=== PATIENT | male | born 1960 | race Caucasian/White ===

== ENCOUNTER 2022-03-11 14:09 | Outpatient (CLI) | payer OTHER ==
[2022-03-11] MEDS ORDERED: GADOBUTROL 10 MMOL/10 ML VIAL ONE (15:11)
[2022-03-11] MEDS ORDERED: GADOBUTROL 10 MMOL/10 ML VIAL IVP ONE (16:16)
--- NOTE | 2022-03-11 17:51 | MRI Report ---
PROCEDURE: Lumbar Spine W/WO INDICATIONS: MS, LUMBAR RADICULOPATHY CONTRAST: IV CONTRAST: Gadavist ml: 9.2 TECHNIQUE: Noncontrast sagittal T1 spin echo and T2 fast spin echo, sagittal STIR, axial T1 and T2 fast spin ech o through the lumbar spine. In cases with scoliosis, additional coronal T2 fast spin echo may be per formed. After the administration of contrast, sagittal and axial T1 spin echo with fat saturation th rough the lumbar spine. COMPARISON: None. FINDINGS: Image quality: Motion artifact is noted. Alignment and curvature: There is minimal retrolisthesis at L3-L4 and L4-L5. Marrow: Marrow is of normal overall signal. No acute vertebral body compression fractures. No susp icious marrow enhancement. Spinal cord: Conus medullaris terminates at the L1 level. Visualized spinal cord demonstrates guy l signal, without suspicious enhancement. Paraspinous soft tissues: No paravertebral masses or abnormal enhancement. T12-L1: Normal in appearance. L1-L2: Mild to moderate loss of disc height and disc signal can be seen. Mild to moderate disc bul ge is seen, which is eccentric to the right side. Moderate bilateral neural foraminal narrowing is s een. Moderate central canal narrowing is seen. L2-L3: Mild to moderate loss of disc height and disc signal can be seen at this level. At least mo derate disc bulge is seen, with a central/left disc extrusion. Mild facet hypertrophy is seen. Mod erate bilateral neural foraminal narrowing is seen. Severe central canal narrowing is seen at this l evel, as on series 7001 image 25 and on series 401 image 10. L3-L4: Moderate loss of disc height and signal are seen. Reactive marrow endplate changes are seen posteriorly, which are hyperintense on T1-weighted and T2-weighted imaging, without significant incr eased STIR signal. 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 Moderate disc bulge is seen. A superimposed central disc protrusion is seen. There is at chon st moderate bilateral neuroforaminal narrowing seen. A mild degree of compression can be seen upon th e exiting L3 nerve roots. Moderate central canal narrowing is seen. L4-L5: Mild loss of disc height and disc signal are seen. Moderate disc bulge is seen. A superimpos ed central disc protrusion is seen. Moderate facet hypertrophy is seen. Moderate to severe bilatera l neuroforaminal narrowing can be seen, right worse than left. Compression is seen upon the exiting n erve roots. Moderate to severe central canal narrowing is seen, as on series 701 image 13. L5-S1: The disc height is well-preserved. There is loss of disc signal seen. Mild disc bulge is se en. There is a mild central disc protrusion. Mild to moderate facet hypertrophy is seen. There is mo derate to severe bilateral neuroforaminal narrowing seen. Compression is seen upon the exiting nerve roots. Mild central canal narrowing is seen. IMPRESSION: Multiple levels of lumbar spine degenerative change are seen, including severe central canal narrowin g at L2-L3, with a central disc extrusion. There is moderate to severe central canal narrowing at L4-L5. Several sites of significant neuroforaminal narrowing can be seen, with associated exiting nerve root compression. Reviewed by: Christian Virk MD on 03/11/2022 4:50 PM ARTHUR Approved by: Christian Virk MD on 03/11/2022 4:50 PM ARTHUR Station ID: [id number]
== END 2022-03-11 14:10 | disposition home or self-care (01) ==
LOC: DI 14:09
PROVIDERS: ATTEND Student in an Organized Health Care Education/Training Program
DX: G35 Multiple sclerosis (principal); M47.26 Other spondylosis with radiculopathy, lumbar region; M51.16 Intervertebral disc disorders with radiculopathy, lumbar region; M48.061 Spinal stenosis, lumbar region without neurogenic claudication; M51.17 Intervertebral disc disorders with radiculopathy, lumbosacral region; M47.27 Other spondylosis with radiculopathy, lumbosacral region; M48.07 Spinal stenosis, lumbosacral region
CPT/HCPCS: 72158; A9585

== ENCOUNTER 2022-10-19 13:51 | Outpatient (CLI) | payer OTHER ==
--- NOTE | 2022-10-19 17:10 | MRI Report ---
PROCEDURE: LUMBAR SPINE WO INDICATIONS: LUMBAR HERNIATED DISC TECHNIQUE: Noncontrast sagittal T1 spin echo and T2 fast echo, sagittal STIR, axial T1 and T2 fast spin echo thr ough the lumbar spine. In cases with scoliosis, additional coronal T2 fast spin echo may be performe d. COMPARISON: MRI of the lumbar spine dated 03/11/2022 FINDINGS: Image quality: Excellent. Alignment and Curvature: There is normal bony alignment. Bone Marrow: Marrow is of normal overall signal. No acute vertebral body compression fractures. Spinal Cord: Conus medullaris terminates at the 1 level. Visualized cord demonstrates normal signal and size. Paraspinous Soft Tissues: No paravertebral masses. T12-L1: Mild disc desiccation and height loss. No canal stenosis. No foraminal stenosis. L1-L2: Moderate disc desiccation and height loss. No canal stenosis. Mild facet ligamentum flavum hypertrophy. No foraminal stenosis. L2-L3: Moderate disc desiccation and height loss. Broad based disc bulge. Mild canal stenosis. Mod erate facet ligamentum flavum hypertrophy. No foraminal stenosis. L3-L4: Moderate disc desiccation and height loss. Broad based disc bulge. Moderate facet ligamentum flavum hypertrophy. Mild canal stenosis. Mild bilateral foraminal stenosis. L4-L5: Severe disc desiccation and height loss. Vacuum disc phenomenon. Broad-based disc bulge. Mod erate facet and ligamentum flavum hypertrophy. Moderate canal stenosis. Mild left foraminal narrowing . There is a T2 hypointense extra medullary mass within the right neural foramen which measures appro ximately 0.8 x 1.0 x 1.4 cm. There is narrowing of the right lateral recess and mild canal stenosis. There is severe right foraminal stenosis. Mild left neural foraminal narrowing. L5-S1: Mild disc desiccation. Broad-based disc bulge. Moderate facet sclerosis. No canal stenosis. No foraminal stenosis. IMPRESSION: 1. Disc desiccation and height loss throughout the lumbar spine most severe at L4-5. 2. Hypointense extra medullary mass at the right L4-5 neuroforamen suspicious for an extruded disc fr agment. Contrast-enhanced MRI of the lumbar spine is recommended to further characterize this finding and exclude 1 overall or other enhancing mass lesions. 3. Severe right neuroforaminal stenosis at L4-5 secondary to the foraminal mass. Reviewed by: Renate Bess MD on 10/19/2022 5:08 PM PST Approved by: Renate Bess MD on 10/19/2022 5:08 PM PST Station ID: [id number]
== END 2022-10-19 13:52 | disposition home or self-care (01) ==
LOC: DI 13:51
PROVIDERS: ATTEND Neurological Surgery
DX: M51.26 Other intervertebral disc displacement, lumbar region (principal); M51.16 Intervertebral disc disorders with radiculopathy, lumbar region; M48.061 Spinal stenosis, lumbar region without neurogenic claudication

== ENCOUNTER 2023-02-07 12:29 | Outpatient (CLI) | payer OTHER ==
--- NOTE | 2023-02-07 15:10 | XRAY Report ---
PROCEDURE: Lumbar Spine w/Flex/Ext INDICATIONS: LUMBAR RADICULOPATHY TECHNIQUE: AP & Lateral views of the lumbar spine were acquired, followed by flexion & extension anne marie ding views of the lumbar spine. COMPARISON: None. FINDINGS: Bones: 5 [id number] vertebrae are present. Slight rightward curvature. No listhesis. Moderate disc loss at L4-5. Mild disc height loss at remaining levels. Facet arthrosis L4-S1. Soft tissues: Overlying bowel gas pattern is normal. No suspicious soft tissue calcifications. Flexion/extension: There is normal range of motion, with preserved normal alignment. IMPRESSION: 1. No abnormal motion with flexion or extension. 2. [id number], multilevel disc height loss. 3. Lower lumbar facet arthrosis. Reviewed by: Salomón Marquez on 02/07/2023 3:09 PM PDT Approved by: Salomón Marquez on 02/07/2023 3:09 PM PDT Station ID: [id number]
== END 2023-02-07 12:30 | disposition home or self-care (01) ==
LOC: DI 12:29
PROVIDERS: ATTEND Nurse Practitioner Family
DX: M47.816 Spondylosis without myelopathy or radiculopathy, lumbar region (principal); M51.36 Other intervertebral disc degeneration, lumbar region; M47.817 Spondylosis without myelopathy or radiculopathy, lumbosacral region

== ENCOUNTER 2023-05-24 14:29 | Emergency (ER) | payer OTHER ==
[2023-05-24 15:10] VITALS: BP 198/113
--- NOTE | 2023-05-24 15:26 | ED Physician Documentation ---
PD HPI UPPER EXT INJURY - Stated complaint Stated Complaint: LT ELBOW SWELLING,FEVER - Chief complaint Chief Complaint: Ext Problem - History obtained from History obtained from: Patient - Additonal information Additional information: 62-year-old gentleman with conservatively managed MS and obstructive sleep apnea on CPAP had a mechanical fall scraping his left elbow about 6 days ago. Approximate 2 days ago started having increasing swelling and pain and started running a fever. PD PAST MEDICAL HISTORY - Present Medications Home Medications: Ambulatory Orders Medication Instructions Recorded Confirmed Sulfamethox/Trimeth 800/160 1 each PO BID #14 tablet 05/24/23 [Bactrim Ds 800/160] cephALEXin [Keflex] 500 mg PO Q6H #28 cap 05/24/23 - Allergies Allergies/Adverse Reactions: Allergies Allergy/AdvReac Type Severity Reaction Status Date / Time No Known Drug Allergies Allergy Verified 05/24/23 15:01 PD ED PE NORMAL - Vitals Vital signs reviewed: Yes (Febrile and tachycardic) - General General: Alert and oriented X 3, No acute distress - Cardiac Cardiac: RRR, No murmur - Respiratory Respiratory: No respiratory distress, Clear bilaterally - Abdomen Abdomen: Normal bowel sounds, Soft, Non tender - Back Back: No CVA TTP, No spinal TTP - Derm Derm: Normal color, Warm and dry - Extremities Extremities: Other (There is an abrasion on the left elbow with surrounding cellulitis and limited range of motion. The abrasion is over the olecranon. There is a suggestion of fluctuance in the olecranon bursa.) - Neuro Neuro: Alert and oriented X 3, Normal speech Results - Vitals Vitals: Vital Signs - 24 hr 05/24/23 15:01 Temperature 38.2 C H Heart Rate 105 H Respiratory 18 Rate Blood Pressure 198/113 H O2 Saturation 99 Oxygen O2 Source Room air - Labs Labs: Laboratory Tests 05/24/23 05/24/23 05/24/23 15:43 15:43 15:43 WBC 10.9 H RBC 4.36 L Hgb 13.7 L Hct 40.3 L MCV 92.4 MCH 31.4 H MCHC 34.0 RDW 12.5 Plt Count 232 MPV 9.7 Neut # (Auto) 8.6 H Lymph # (Auto) 1.0 L [place] # (Auto) 1.3 H Eos # (Auto) 0.0 Baso # (Auto) 0.1 Absolute Nucleated RBC 0.00 Nucleated RBC % 0.0 Sodium 134 L Potassium 3.8 Chloride 102 Carbon Dioxide 21 Anion Gap 11.0 BUN 11 Creatinine 0.8 Estimated GFR (MDRD) 99 Glucose 119 H Lactic Acid 0.9 Calcium 8.7 - Rads (name of study) L elbow Relevant Findings:: Final report received, EMP independent interpretation of test Procedures - Abscess I&D (location) Left olecranon bursa Preparation: Confirmed with ultrasound, Lidocaine 1% Incision: Purulent drainage, Loculations broken, Packed Other: Pt tolerated well, Antibiotic prescribed PD Medical Decision Making - ED course ED course: 62-year-old gentleman with septic left olecranon bursitis. Labs showing mild leukocytosis, otherwise unremarkable. I&D was done in department and received oral Bactrim and a dose of Ancef and Keflex and Bactrim to go as it is 24 May and no pharmacies are open. Given the x-ray though I did talk with our on-call orthopedic surgeon, Dr. Almonte who reviewed his x-rays. He is not convinced that this represents a fracture, may just be calcific tendinitis since he did not see a donor site. Regardless can follow-up outpatient for it and this would not represent an open fracture as the olecranon bursa and the olecranon do not communicate. Departure - Departure Clinical Impression: Olecranon bursitis, left elbow Condition: Good Record reviewed to determine appropriate education?: Yes Instructions: ED Bursitis Elbow Olecranon Follow-Up: [facility] [Provider Group] Prescriptions: Sulfamethox/Trimeth 800/160 [Bactrim Ds 800/160] 1 each PO BID #14 tablet cephALEXin [Keflex] 500 mg PO Q6H #28 cap Comments: You were seen today for septic olecranon bursitis of the left elbow. An incision and drainage was done. We are performing a wound culture, the results should be done in 48-72 hours. If antibiotic change is necessary we will call you. Return if worse in the meantime, especially if you develop increased pain, fevers, cannot keep down the medication. Otherwise return here or follow-up with your physician in 2 days for wound check, packing removal, and culture review. There was a concern about a fracture on the x-ray, our on-call orthopedic surgeon felt it was more of a chronic issue but you should follow-up in their clinic as well, the numbers on this form calling tomorrow for an appointment.
[2023-05-24] MEDS: SULFAMETH/TRIMETH DS 800/160 MG TABLET PO STA (15:48)
[2023-05-24] MEDS: ceFAZolin 1 GM VIAL IVP STA (15:49)
[2023-05-24] MEDS: BUFFERED LIDOCAINE 10 ML SYRINGE SUBQ STA (15:49)
[2023-05-24 15:55] LABS: BASOPHILS # (AUTO) 0.1 10^3/uL (0.0-0.1); BASOPHILS % (AUTO) 0.5 %; EOSINOPHILS % (AUTO) 0.3 %; HCT - HEMATOCRIT 40.3 % (42.0-52.0); HGB - HEMOGLOBIN 13.7 g/dL (14.0-18.0); LYMPHOCYTES % (AUTO) 8.7 %; MEAN CORPUSCULAR HEMOGLOBIN 31.4 pg (27.0-31.0); MEAN CORPUSCULAR VOLUME 92.4 fL (80.0-94.0); MEAN PLATELET VOLUME 9.7 fL (7.4-11.4); MONOCYTES # (AUTO) 1.3 10^3/uL (0.0-1.0); MONOCYTES % (AUTO) 11.8 %; NEUTROPHILS # (AUTO) 8.6 10^3/uL (1.5-6.6); NEUTROPHILS % (AUTO) 78.2 %; PLT - PLATELET COUNT 232 10^3/uL (130-450); RED BLOOD COUNT 4.36 10^6/uL (4.70-6.10); RED CELL DISTRIBUTION WIDTH 12.5 % (12.0-15.0); WHITE BLOOD COUNT 10.9 x10^3/uL (4.8-10.8)
[2023-05-24 16:02] LABS: CALCIUM 8.7 mg/dL (8.5-10.3); CREATININE 0.8 mg/dL (0.6-1.2); POTASSIUM 3.8 mmol/L (3.5-5.0)
--- NOTE | 2023-05-24 16:21 | XRAY Report ---
PROCEDURE: Elbow 3 View LT INDICATIONS: fall, struck elbow TECHNIQUE: 3 views of the elbow were acquired. COMPARISON: None. FINDINGS: Bones: No fractures or dislocations. Fracture of the posterior olecranon with approximately 8 mm di splacement. No suspicious bony lesions. Soft tissues: No effusion. No suspicious soft tissue calcifications or masses. IMPRESSION: Avulsion fracture of the posterior olecranon. Reviewed by: David Oh on 05/24/2023 3:19 PM ARTHUR Approved by: David Oh on 05/24/2023 3:19 PM ARTHUR Station ID: [id number]
[2023-05-24] MEDS: CEPHALEXIN 250 MG Prepack 8 CAP BOTTLE PO STA (16:47)
[2023-05-24] MEDS: oxyCODONE/ACET 5/325 Prepack 4 PO STA (16:47)
[2023-05-24] MEDS: SULFAM/TRIM 800/160 Prepack 2 PO ONE (16:47)
== END 2023-05-24 16:54 | disposition home or self-care (01) ==
LOC: ED 14:29
DX: M70.22 Olecranon bursitis, left elbow (principal)
CPT/HCPCS: 10061; 36415; 80048; 83605; 85025; 87040; 87070; 87181; 87205; 99284